=== PATIENT | male | born 1945 | race Caucasian/White ===

== ENCOUNTER → 2017-01-20 | Outpatient (REF) | payer MEDICARE, OTHER ==
[~2017-01-20] MED LIST: AMLO25TA PO; ASPI81TA85 PO; FISHCAP PO; LOSA100T36 PO; METF750T PO; MULTTAB12 PO
== END ==
LOC: M LAB REF 11:48
PROVIDERS: ATTEND Internal Medicine
DX: I22.2 Subsequent non-ST elevation (NSTEMI) myocardial infarction (principal)

== ENCOUNTER → 2017-07-26 | Outpatient (REF) | payer MEDICARE, OTHER ==
[2017-07-26 12:39] LABS: URIC ACID 3.9 MG/DL (3.5-7.2)
== END ==
LOC: M LAB REF 11:56
DX: I22.2 Subsequent non-ST elevation (NSTEMI) myocardial infarction (principal); I10 Essential (primary) hypertension
CPT/HCPCS: 84550

== ENCOUNTER → 2017-11-29 | Outpatient (REF) | payer MEDICARE, OTHER ==
[2017-11-29 14:53] LABS: URIC ACID 4.3 MG/DL (3.5-7.2)
== END ==
LOC: M LAB REF 13:17
DX: I25.2 Old myocardial infarction (principal)
CPT/HCPCS: 84550

== ENCOUNTER → 2018-01-18 | Outpatient (REF) | payer MEDICARE, OTHER | LOC: M LAB REF 09:10 | DX: L72.0 Epidermal cyst (principal) | CPT/HCPCS: 88304 ==

== ENCOUNTER → 2018-07-26 | Outpatient (REF) | payer MEDICARE, OTHER ==
[~2018-07-26] MED LIST changes: -LOSA100T36 PO; +LOSA100T50 PO
== END ==
LOC: M LAB REF 12:05
PROVIDERS: ATTEND Internal Medicine
DX: Z86.79 Personal history of other diseases of the circulatory system (principal)

== ENCOUNTER → 2020-01-14 | Outpatient (REF) | payer MEDICARE, OTHER ==
[~2020-01-14] MED LIST changes: -ASPI81TA85 PO; +ASPI81TA86 PO; -METF750T PO; +METF750T36 PO
== END ==
LOC: M LAB REF 12:25
PROVIDERS: ATTEND Internal Medicine
DX: E79.0 Hyperuricemia without signs of inflammatory arthritis and tophaceous disease (principal)

== ENCOUNTER → 2020-08-14 | Outpatient (CLI) | payer MEDICARE, OTHER ==
[~2020-08-14] MED LIST changes: +ALLO10TA PO; +CITA10TA5 PO; +ECOT81TA5 PO; +LOSA25TA14 PO; +METF500T13 PO; +METO1TAB32 PO; +PEPC1TAB5 PO; +REPA140I2 SC
== END ==
LOC: M LABSMTC 12:07
PROVIDERS: ATTEND Anesthesiology
DX: Z01.812 Encounter for preprocedural laboratory examination (principal); Z20.822 Contact with and (suspected) exposure to COVID-19

== ENCOUNTER 2020-08-19 13:21 | Day surgery (SDC) | payer MEDICARE, OTHER ==
[~2020-08-19] VITALS: Ht 180.3 cm; Wt 80.2 kg
[~2020-08-19 13:21] MED LIST changes: +NS 1,000 ML IV ONE
[2020-08-19] MEDS ORDERED: METOPROLOL SUCC *XL* 25MG TAB (TopROL *XL*) PO ONE (14:05)
[2020-08-19] MEDS ORDERED: propofoL 200 MG/20 ML VIAL As Ordered ONE (14:09)
[2020-08-19 14:10] VITALS: BP 138/70
[2020-08-19] MEDS ORDERED: LIDOCAINE 2% 100MG/5ML SDV (FOR ANES.) As Ordered ONE (14:12)
--- NOTE | 2020-08-19 14:38 | ROOR ---
Patient Name: Marlon Avila Procedure Date: 08/19/2020 2:14 PM Date of : 1945 Age: 75 Room: [facility] Gender: Male Note Status: Finalized Procedure: Total Colonoscopy to Cecum + ileoscopy Indications: High risk colon cancer surveillance: Personal history of colonic polyps, Last colonoscopy: 2014 Providers: Jonatan Ni MD Referring MD: JERONIMO LUIS JR, MD Requesting Provider: Medicines: Monitored Anesthesia Care Complications: No immediate complications. Procedure: Pre-Anesthesia Assessment: - The heart rate, respiratory rate, oxygen saturations, blood pressure, adequacy of pulmonary ventilation, and response to care were monitored throughout the procedure. The Colonoscope was introduced through the anus and advanced to the cecum, identified by appendiceal orifice and ileocecal valve. The colonoscopy was performed without difficulty. The patient tolerated the procedure well. The quality of the bowel preparation was excellent. Findings: The perianal and digital rectal examinations were normal. Non-bleeding internal hemorrhoids were found during retroflexion. The hemorrhoids were small and Grade I (internal hemorrhoids that do not prolapse). Scattered small-mouthed diverticula were found in the recto-sigmoid colon, sigmoid colon and descending colon. The exam was otherwise without abnormality on direct and retroflexion views. The terminal ileum appeared normal. Impression: - Non-bleeding internal hemorrhoids. - Diverticulosis in the recto-sigmoid colon, in the sigmoid colon and in the descending colon. - The examination was otherwise normal on direct and retroflexion views. - The examined portion of the ileum was normal. - No specimens collected. - The exam was otherwise normal to the cecum. Recommendation: - Patient has a contact number available for emergencies. The signs and symptoms of potential delayed complications were discussed with the patient. Return to normal activities tomorrow. Written discharge instructions were provided to the patient. - High fiber diet. - Discharge patient to home. - Continue present medications. - Repeat colonoscopy is not recommended due to current age (66 years or older) for surveillance. - Return to referring physician. - The findings and recommendations were discussed with the patient's family. Procedure Code(s): --- Professional --- G0105, Colorectal cancer screening; colonoscopy on individual at high risk Diagnosis Code(s): --- Professional --- Z86.010, Personal history of colonic polyps K64.0, First degree hemorrhoids K57.30, Diverticulosis of large intestine without perforation or abscess without bleeding CPT copyright 2019 [employer]. All rights reserved. The codes documented in this report are preliminary and upon rat poisoner review may be revised to meet current compliance requirements. Jonatan Ni MD Jonatan Ni MD 08/19/2020 2:37:51 PM Electronically signed by Jonatan Ni MD Number of Addenda: 0 Note Initiated On: 08/19/2020 2:14 PM Estimated Blood Loss: Estimated blood loss: none.
[2020-08-19 15:00] VITALS: BP 130/67
== END 2020-08-19 15:12 | disposition home or self-care (01) ==
LOC: M OPP 13:21
PROVIDERS: ATTEND Internal Medicine Gastroenterology
DX: Z12.11 Encounter for screening for malignant neoplasm of colon (principal); Z86.010 Personal history of colon polyps; K57.30 Diverticulosis of large intestine without perforation or abscess without bleeding; K64.0 First degree hemorrhoids; I25.2 Old myocardial infarction; Z95.5 Presence of coronary angioplasty implant and graft; Z79.899 Other long term (current) drug therapy; Z91.041 Radiographic dye allergy status; Z87.891 Personal history of nicotine dependence

== ENCOUNTER → 2020-10-26 | Outpatient (CLI) | payer MEDICARE, OTHER ==
[~2020-10-26] MED LIST changes: -NS 1,000 ML IV ONE
--- NOTE | 2020-10-26 08:40 | REP ---
INDICATION: ELEVATED LFT'S. COMPARISON: None. TECHNIQUE: Right upper quadrant sonography. FINDINGS: Scanning through the right upper quadrant the abdomen demonstrates a somewhat echogenic but homogeneous liver consistent with some degree of fatty infiltration. No focal liver lesion is seen. Liver is not enlarged. Gallbladder is normal in size with a smooth thin wall. No stone or polyp. Common bile duct is at the upper range of normal given the patient's age at 0.85 cm. No intrahepatic biliary ductal dilation is observed. No abnormality is noted in the pancreas. There is no evidence of ascites or right renal abnormality. The right kidney measures 12.0 x 5.8 x 4.9 cm.. IMPRESSION: Evidence of fatty infiltration of the liver. Common bile duct in the upper range of normal. Otherwise negative right upper quadrant sonography.. <Electronically signed by Fran Greenwood > 10/26/20 [id number]
== END ==
LOC: M RAD 07:18
PROVIDERS: ATTEND Internal Medicine
DX: R94.5 Abnormal results of liver function studies (principal)

== ENCOUNTER → 2021-02-16 | Outpatient (REF) | payer MEDICARE, OTHER | LOC: M LAB REF 12:25 | PROVIDERS: ATTEND Internal Medicine | DX: E79.0 Hyperuricemia without signs of inflammatory arthritis and tophaceous disease (principal) ==

== ENCOUNTER → 2022-03-09 | Outpatient (REF) | payer MEDICARE, OTHER ==
[~2022-03-09] MED LIST changes: -CITA10TA5 PO; +CITA10TA7 PO; +LOSA100T45 PO; -LOSA100T50 PO; +LOSA25TA13 PO; -LOSA25TA14 PO
== END ==
LOC: M LAB REF 12:43
PROVIDERS: ATTEND Internal Medicine
DX: E79.0 Hyperuricemia without signs of inflammatory arthritis and tophaceous disease (principal)

== ENCOUNTER → 2023-08-08 | Outpatient (REF) | payer MEDICARE, OTHER ==
[~2023-08-08] MED LIST changes: -LOSA100T45 PO; +LOSA100T46 PO
== END ==
LOC: M LAB REF 12:53
PROVIDERS: ATTEND Internal Medicine
DX: E79.0 Hyperuricemia without signs of inflammatory arthritis and tophaceous disease (principal)

== ENCOUNTER → 2023-09-21 | Outpatient (CLI) | payer MEDICARE, OTHER | LOC: M RAD 07:52 | PROVIDERS: ATTEND Physician Assistant Medical | DX: R10.11 Right upper quadrant pain (principal); R74.01 Elevation of levels of liver transaminase levels ==

== ENCOUNTER → 2023-10-16 | Outpatient (REF) | payer MEDICARE, OTHER ==
[2023-10-16 18:47] LABS: HEPATITIS B SURFACE ANTIGEN NEGATIVE (NEGATIVE)
[2023-10-16 19:07] LABS: HEPATITIS C VIRUS ABY INDEX < 0.02 INDEX (<0.8)
== END ==
LOC: M LAB REF 16:42
PROVIDERS: ATTEND Internal Medicine
DX: K76.0 Fatty (change of) liver, not elsewhere classified (principal); R74.01 Elevation of levels of liver transaminase levels

== ENCOUNTER → 2023-10-31 | Outpatient (CLI) | payer MEDICARE, OTHER | LOC: M PLAIMG 10:30 | PROVIDERS: ATTEND Internal Medicine | DX: K76.0 Fatty (change of) liver, not elsewhere classified (principal); R74.01 Elevation of levels of liver transaminase levels; R10.11 Right upper quadrant pain ==

== ENCOUNTER → 2024-01-30 | Outpatient (REF) | payer MEDICARE, OTHER | LOC: M LAB REF 13:38 | PROVIDERS: ATTEND Internal Medicine | DX: R79.0 Abnormal level of blood mineral (principal) ==

== ENCOUNTER → 2024-03-13 | Outpatient (CLI) | payer MEDICARE, OTHER | LOC: M RAD 08:50 | PROVIDERS: ATTEND Surgery | DX: K50.80 Crohn's disease of both small and large intestine without complications (principal) ==